=== PATIENT | female | born 1985 ===

== ENCOUNTER 2022-03-08 23:43 | Inpatient (IN) | payer OTHER ==
[2022-03-09] MEDS ORDERED: Sodium Chloride 0.9% 20 ML SDV IV PRN (00:57)
[2022-03-09] MEDS ORDERED: Sodium Chloride 0.9% 2.5 ML Syringe FLUSH PRN (00:57)
[2022-03-09] MEDS ORDERED: Methylergonovine 0.2 MG/1 ML Amp IM PRN (00:57)
[2022-03-09] MEDS ORDERED: Tranexamic Acid 1,000 MG in Sodium Chloride 0.9% 100 ML IV PRN (00:57)
[2022-03-09] MEDS ORDERED: Lidocaine 1% 50 ML MDV INJECT PRN (00:57)
[2022-03-09] MEDS ORDERED: Ondansetron 4 MG/2 ML SDV IVPUSH PRN (00:57)
[2022-03-09] MEDS ORDERED: Water For Irrigation,Sterile 1,000 ML Container IRR PRN (00:57)
[2022-03-09] MEDS ORDERED: Misoprostol 200 MCG Tab PO PRN (00:57)
[2022-03-09] MEDS ORDERED: Sodium Chloride 0.9% 10 ML Syringe FLUSH PRN (00:57)
[2022-03-09] MEDS ORDERED: Misoprostol 25 MCG (1/4 of 100 MCG) Tab VAG PRN ×2 (00:57)
[2022-03-09] MEDS ORDERED: Butorphanol 1 MG/ML SDV IVPUSH PRN (00:57)
[2022-03-09] MEDS ORDERED: Terbutaline 1 MG/ML SDV SUBCUT PRN (00:57)
[2022-03-09] MEDS ORDERED: Carboprost Tromethamine 250 MCG/1 ML Amp IM PRN (00:57)
[2022-03-09] MEDS ORDERED: Lactated Ringers 1,000 ML IV SCH (01:00)
[2022-03-09] MEDS ORDERED: Oxytocin/0.9 % Sodium Chloride 30 UNIT/500 ML BAG IV SCH ×2 (01:00)
[2022-03-09] MEDS ORDERED: ePHEDrine 50 MG/ML SDV IVPUSH PRN ×2 (09:10)
[2022-03-09] MEDS ORDERED: Phenylephrine HCl In 0.9% NaCl 1 MG/10 ML Vial IVPUSH SCH (09:15)
[2022-03-09] MEDS ORDERED: Ropivacaine HCl/PF 400 MG in Premix Bag 1 BAG EPIDUR SCH (09:15)
[2022-03-09] MEDS ORDERED: Docusate Sodium 100 MG Cap PO PRN (09:16)
[2022-03-09] MEDS ORDERED: Ibuprofen 800 MG Tab PO PRN (09:16)
[2022-03-09] MEDS ORDERED: Lanolin 100% Cream 7 GM Tube TOP PRN (09:16)
[2022-03-09] MEDS ORDERED: Bisacodyl 10 MG Supp RECTAL PRN (09:16)
[2022-03-09] MEDS ORDERED: diphenhydrAMINE 50 MG Cap PO PRN (09:16)
[2022-03-09] MEDS ORDERED: Ibuprofen 400 MG Tab PO PRN (09:16)
[2022-03-09] MEDS ORDERED: Acetaminophen 500 MG Tab PO PRN ×2 (09:16)
[2022-03-09] MEDS ORDERED: Witch Hazel Medicated Pads 40/Jar TOP PRN (09:16)
[2022-03-09] MEDS ORDERED: Benzocaine/Menthol 20%-0.5% Spray 78 GM Cannister TOP PRN (09:16)
== END 2022-03-10 12:21 | disposition home or self-care (01) | DRG 807 ==
LOC: MW.OBCHECK 23:43 → MW.OB 23:43 → MW.OBCHECK 03-09 00:55 → MW.OB 03-09 00:55 → OBSVTOIN 03-09 10:30 → MW.OB 03-09 10:45
PROVIDERS: ADMIT Obstetrics & Gynecology; ATTEND Obstetrics & Gynecology Obstetrics
PROC: 10E0XZZ Delivery of Products of Conception, External Approach (ICD-10-PCS; principal; 2022-03-09)
DX: O99.62 Diseases of the digestive system complicating childbirth (principal); Z37.0 Single live birth; K21.9 Gastro-esophageal reflux disease without esophagitis; Z20.822 Contact with and (suspected) exposure to COVID-19; Z3A.39 39 weeks gestation of pregnancy
CPT/HCPCS: 36415; 59025; 59409; 84112; 85014; 85018; 85027; 86592; 86850; 86900; 86901; A9270-GY; J2590; J7120; U0002